=== PATIENT | male | born 1975 | race African-American/Black ===

== ENCOUNTER 2017-03-12 01:26 | Emergency (ER) | payer MEDICAID ==
[~2017-03-12] VITALS: Ht 177.8 cm; Wt 87.0 kg
[2017-03-12 01:29] VITALS: BP 129/89
[2017-03-12] MEDS ORDERED: LIDOCAINE HCL 1% 20ML VIAL (Pyxis) INJ INFIL ONE (04:30)
[2017-03-12] MEDS ORDERED: CEFTRIAXONE SODIUM 1 G/VIAL IM ONE (04:30)
== END 2017-03-12 05:48 | disposition home or self-care (01) ==
LOC: ER 04:24
DX: L03.116 Cellulitis of left lower limb (principal); K21.9 Gastro-esophageal reflux disease without esophagitis
CPT/HCPCS: 96372; 99283; J0696; J3490; J7030